=== PATIENT | female | born 1960 | race Caucasian/White ===

== ENCOUNTER → 2019-12-17 07:23 | Outpatient (CLI) | payer OTHER, SELFPAY ==
--- NOTE | 2019-12-17 07:28 | DI.RAD.S_ITS ---
PROCEDURE: XR LUMBAR SPINE MIN 4V INDICATIONS: Chronic progressive low back pain TECHNIQUE: 5 views of the lumbar spine were acquired. COMPARISON: None. FINDINGS: Bones: No fracture or focal osseous destruction. Multilevel degenerative endplate sclerosis and spurring. Diffuse facet arthropathy. Straightening of the normal lordotic curvature. Slight dextrocurvature. Mild narrowing of the L4-L5 and L5-S1 disc spaces. Trace anterolisthesis of L4 and L5. Lucency projecting within the L4 left transverse process, which could reflect superimposed fat stripe however cannot exclude age-indeterminate minimally displaced fracture; this is not definitely confirmed on other views. Soft tissues: Overlying bowel gas pattern is normal. No suspicious soft tissue calcifications. Oblique images: No pars defects. IMPRESSION: Mild lower lumbar spondylosis and facet arthropathy as above Mild dextrocurvature Straightening of the normal lordotic curvature. Dictated by: Tom Cisneros M.D. on 12/17/2019 at 8:40 Approved by: Tom Cisneros M.D. on 12/17/2019 at 8:44
== END ==
PROVIDERS: PCP Internal Medicine; Referring Provider Physical Medicine & Rehabilitation; Visit Provider Physical Medicine & Rehabilitation
DX: M54.41 Lumbago with sciatica, right side (principal); M54.42 Lumbago with sciatica, left side; M47.816 Spondylosis without myelopathy or radiculopathy, lumbar region; G89.29 Other chronic pain
CPT/HCPCS: 72110